=== PATIENT | male | born 1995 | race Caucasian/White ===

== ENCOUNTER 2020-05-23 09:11 | Emergency (ER) | payer SELFPAY ==
--- NOTE | ~2020-05-23 | XR_ITS ---
XR lumbar spine 2-3V DATE: 05/23/2020 10:12 INDICATION: Left low back pain, radiating to testicle and left hip. No known injury. TECHNIQUE: AP, lateral, coned lateral lumbosacral views COMPARISON: None FINDINGS: No apparent urinary tract calculus is evident. Normal alignment of the lumbar spine. No fracture or bone destruction or spondylolisthesis.. The incl uded lower thoracic and lumbar pedicles are intact. Lumbar and lumbosacral interspaces are well prese rved. The sacroiliac joints appear normal. IMPRESSION: Normal examination Reviewed, dictated and finalized at location A. D [employer] IMPRESSION: Normal examination
[2020-05-23 09:30] VITALS: BP 108/48; PULSE 68; RESP 14; TEMP 36.6; O2SAT 100
--- NOTE | 2020-05-23 09:39 | ED.BACK ---
HPI - Back Pain/Injury General Chief Complaint: Back Pain/Injury Stated Complaint: lower back and hip pain Time Seen by Provider: 05/23/20 09:39 Source: patient Mode of arrival: ambulatory Limitations: no limitations History of Present Illness HPI Narrative: Rafa Brown is a 24 yo male medical history who comes to [facility] with complaints of pain in his lower back with radiation into his anterior thigh left testicle and down his back of his leg. He is not aware of any activity that could have caused the pain but is noticed when he adducts his leg are tries to lay down that it worsens and makes it difficult for him to sleep. When laying down is rated as 8/10 He has no prior history of back injury or other medical conditions. States that pain was temporarily relieved with marijuana Related Data Allergies Allergy/AdvReac Type Severity Reaction Status Date / Time Penicillins Allergy Severe Swelling Verified 05/23/20 09:44 of Lip/Tongue/Throat Review of Systems Review of Systems: Narrative: CONSTITUTIONAL: Denies fever, chills, sweats. EYES: Denies visual changes, redness, discharge. ENT: Denies rhinorrhea, congestion, sore throat, otalgia. CARDIOVASCULAR: Denies chest pain, palpitations, edema. RESPIRATORY: Denies dyspnea, wheezing, cough GASTROINTESTINAL: Denies abdominal pain, nausea, vomiting, diarrhea. GENITOURINARY: Denies dysuria, hematuria, abnormal discharge SKIN: Denies rash or itching. NEUROLOGIC: Denies numbness, or focal weakness. PSYCHIATRIC: Denies anxiety or depression. Pain in lower back that radiates to anterior thigh inguinal area including his left testicle and back of the leg PMFSH Past Medical History Medical History No acute medical problems Family History Family History Other Factor V deficiency Heart disease Social History Social History (Updated 05/23/20 @ 10:00 by Antoinette Damon CNP) Smoking status: Never smoker Alcohol intake: current Comments At time of signature, I agree with nursing past medical, surgical, social and family history. There is no relevant family history pertinent to the presenting complaint. Exam Narrative: Exam Narrative: GENERAL: This is a well-nourished, well-developed patient, in mild distress. HEAD: normocephalic, atraumatic. EYES: Sclera clear/white. Vision is grossly intact. EARS: External ears normal, . Hearing grossly intact. NOSE: External nose normal without nasal discharge, nares without redness, no rhinorrhea. THROAT: Mucous membranes moist, NECK: Neck supple, CARDIOVASCULAR: Regular rate and rhythm without murmurs, gallops, or rubs. RESPIRATORY: Clear to auscultation. Breath sounds equal bilaterally. No wheezes, rales, or rhonchi. GASTROINTESTINAL: Abdomen soft, SKIN: warm, intact with no suspicious lesions or rash, good texture and turgor. NEURO: awake, alert, and oriented to person, place and time. There were no obvious focal neurologic abnormalities. Steady gait EXTREMITIES: Normal range of motion. Pain in lower back that radiates when adducts leg, no pain with posterior movement, can bend over without pain, testicle is not swollen or tender, no redness, no lump or lesion on palpation BACK: Nontender without deformity Course Course Emergency Course: Patient comes here with lower back pain and difficulty with lying down with pain radiating from lower back and upper thigh and testicle Lumbar back x-ray shows interval examination, lumbar sacral space is preserved To start on baclofen and ibuprofen 800 given directions on taking ibuprofen with food; given copy of exercises Vital Signs Vital signs: Vital Signs Temperature 98 F 05/23/20 09:30 Pulse Rate 68 05/23/20 09:30 Respiratory Rate 14 05/23/20 09:30 Blood Pressure 108/48 L 05/23/20 09:30 Pulse Oximetry 100 05/23/20 09:30 Temperature 98 F 02
== END 2020-05-23 10:35 | disposition home or self-care (01) ==
PROVIDERS: Emergency Provider Nurse Practitioner; PCP Internal Medicine
DX: S39.012A Strain of muscle, fascia and tendon of lower back, initial encounter (principal); X58.XXXA Exposure to other specified factors, initial encounter
CPT/HCPCS: 72100; 99213; G0463